=== PATIENT | female | born 1990 | race Caucasian/White ===

== ENCOUNTER → 2024-02-06 11:46 | Outpatient (REF) | payer BC, SELFPAY | LOC: PNTC 11:46 | PROVIDERS: ATTENDING PHYSICIAN Obstetrics & Gynecology | DX: O99.210 Obesity complicating pregnancy, unspecified trimester (principal); O09.30 Supervision of pregnancy with insufficient antenatal care, unspecified trimester | CPT/HCPCS: 59025; 76816 ==

== ENCOUNTER → 2024-02-14 10:54 | Outpatient (REF) | payer BC, SELFPAY | LOC: PNTC 10:54 | PROVIDERS: ATTENDING PHYSICIAN Obstetrics & Gynecology | DX: O99.210 Obesity complicating pregnancy, unspecified trimester (principal); O09.32 Supervision of pregnancy with insufficient antenatal care, second trimester | CPT/HCPCS: 59025; 76815 ==

== ENCOUNTER 2024-02-28 19:13 | Inpatient (IN) | payer BC, SELFPAY ==
[2024-02-28 19:58] VITALS: BP 140/83; BMI 31.4
[2024-02-28 20:32] LABS: % Basophils 0.1 % (0-2); % Eosinophils 0.4 % (0-6); % Immature Granulocytes 0.6 % (0-0.5); % Monocytes 6.8 % (1.7-9.3); % Neutrophils 70.1 % (42.2-75.2); Absolute Lymphocytes 1.5 10^3/uL (1.2-3.4); Absolute Monocytes 0.5 10^3/uL (0.1-0.6); Absolute Neutrophils 4.7 10^3/uL (1.4-6.5); Hematocrit 28.3 % (37.0-47.0); Hemoglobin 10.1 g/dL (12.0-16.0); Mean Corp Hgb Conc. 35.7 g/dL (33.0-37.0); Mean Platelet Volume 11.4 fL (7.4-10.4); Nucleated Red Blood Cells % 0 %; Platelet Count 180 10^3/uL (130-400); Red Blood Cell Count 3.37 10^6/uL (4.20-5.40); Red Cell Dist. Width 13.5 % (11.5-14.5); White Blood Cell Count 6.8 10^3/uL (4.8-10.8)
[2024-02-28] MEDS: CYTOTEC 50 MICROGRAM VAG (20:56)
[2024-02-28 21:33] LABS: ALT (SGPT) 13 U/L (0-35); AST (SGOT) 19 U/L (14-36); Albumin 3.1 g/dl (3.5-5.0); Alkaline Phosphatase 78 U/L (38-126); Blood Urea Nitrogen 11 mg/dl (7-17); Calcium 9.6 mg/dl (8.4-10.2); Carbon Dioxide 18 mmol/L (22-30); Chloride 105 mmol/L (98-107); Estimated Creatinine Clearance > 125 ml/min; Glucose 90 mg/dl (70-99); Potassium 3.8 mmol/L (3.5-5.1); Sodium 132 mmol/L (135-145); Total Bilirubin 0.3 mg/dl (0.2-1.3); Total Protein 5.8 g/dl (6.3-8.2); eGFR > 60.00
[2024-02-28 22:35] LABS: Protein/creatinine Ratio 0.4; Urine Protein 19 mg/dl
[2024-02-29] MEDS: CYTOTEC 25 MICROGRAM PO ×2 (01:02→05:01)
[2024-02-29] MEDS: PENICILLIN 110 UNITS IV (09:16)
[2024-02-29] MEDS: FENTANYL/BUPIVACAINE 100 EPIDURAL (09:27)
[2024-02-29] MEDS: CYTOTEC PO (09:27)
[2024-02-29] MEDS: SUBLIMAZE 100 MCG EPIDURAL (09:27)
[2024-02-29] MEDS: PENICILLIN 55 UNITS IV (13:00)
[2024-02-29] MEDS: PITOCIN 30 UNITS/NSS 500 ML IV (14:16)
[2024-02-29] MEDS: MOTRIN 600 MG PO (21:58)
[2024-03-01] MEDS: TYLENOL 650 MG PO ×3 (02:01→11:39)
[2024-03-01 06:21] LABS: Hematocrit 24.9 % (37.0-47.0); Hemoglobin 8.6 g/dL (12.0-16.0)
[2024-03-01] MEDS: PRENATAL PLUS 1 TABLET PO (07:58)
[2024-03-01] MEDS: SENOKOT-S 1 TABLET PO (07:58)
[2024-03-01] MEDS: FEOSOL PO ×2 (11:39→11:43)
[2024-03-01] MEDS: MOTRIN 600 MG PO (14:55)
[2024-03-01] MEDS: FEOSOL 325 MG PO (19:38)
[2024-03-02] MEDS: MOTRIN 600 MG PO (05:45)
[2024-03-02] MEDS: FEOSOL 325 MG PO (07:37)
[2024-03-02] MEDS: PRENATAL PLUS 1 TABLET PO (07:37)
[2024-03-02] MEDS: M-M-R II 0.5 ML SC (07:57)
[2024-03-02] MEDS: TYLENOL 650 MG PO (07:57)
[2024-03-04 14:34] LABS: Syphilis/T. pallidum Ab Reflex Negative (Negative)
== END 2024-03-02 11:05 | disposition home or self-care (01) | DRG 807 ==
LOC: LDRP 19:13
PROVIDERS: Obstetrics & Gynecology; ADMITTING PHYSICIAN Obstetrics & Gynecology
PROC: 10E0XZZ Delivery of Products of Conception, External Approach (ICD-10-PCS; 2024-02-29)
PROC: 0KQM0ZZ Repair Perineum Muscle, Open Approach (ICD-10-PCS; 2024-02-29)
DX: O41.03X0 Oligohydramnios, third trimester, not applicable or unspecified (principal); Z37.0 Single live birth; O99.824 Streptococcus B carrier state complicating childbirth; O70.1 Second degree perineal laceration during delivery; Z3A.38 38 weeks gestation of pregnancy
CPT/HCPCS: 88307; 80053; 82570; 84156; 85014; 85018; 85025; 86780; 86850; 86900; 86901; 90707

== ENCOUNTER → 2025-02-24 10:48 | Outpatient (REF) | payer BC, SELFPAY | LOC: PNTC 10:48 | PROVIDERS: ATTENDING PHYSICIAN Obstetrics & Gynecology | DX: Z36.0 Encounter for antenatal screening for chromosomal anomalies (principal); Z36.82 Encounter for antenatal screening for nuchal translucency | CPT/HCPCS: 76801; 76813 ==

== ENCOUNTER → 2025-03-19 14:44 | Outpatient (REF) | payer BC, SELFPAY | LOC: PNTC 14:44 | PROVIDERS: ATTENDING PHYSICIAN Obstetrics & Gynecology | DX: O09.519 Supervision of elderly primigravida, unspecified trimester (principal) | CPT/HCPCS: 76805 ==

== ENCOUNTER → 2025-04-16 15:55 | Outpatient (REF) | payer BC, SELFPAY | LOC: PNTC 15:55 | PROVIDERS: ATTENDING PHYSICIAN Obstetrics & Gynecology | DX: O09.529 Supervision of elderly multigravida, unspecified trimester (principal) | CPT/HCPCS: 76811; 76817 ==